=== PATIENT | male | born 1955 | race African-American/Black ===

== ENCOUNTER 2018-08-10 09:57 | Observation (INO) ==
[2018-08-10] MEDS ORDERED: ceFAZolin 2 GM Premix Inj 2 GM/50 ML PIGGYBACK IV.SIG ONE (11:27)
[2018-08-10] MEDS ORDERED: Metoprolol Tartrate 25 MG Tablet PO ONE (11:30)
[2018-08-10] MEDS ORDERED: Sodium Chlor 0.9% Inj 500 ML IV.CONT ONE (11:30)
[2018-08-10] MEDS ORDERED: Chlorhexidine Gluconate 2% 1 Pack (2 Cloths) TOPICAL ONE (11:30)
[2018-08-10] MEDS ORDERED: methylPREDNISolone acetate 40 MG/ML VIAL ONE (11:41)
[2018-08-10] MEDS ORDERED: Gelatin Size 100 Topical Foam ONE (11:41)
[2018-08-10] MEDS ORDERED: Bupivacaine/Epinephrine Inj 0.25% 50 ML Vial ONE (11:41)
[2018-08-10] MEDS ORDERED: Thrombin Topical Soln 5,000 UNIT Vial TOPICAL ONE (11:41)
[2018-08-10] MEDS ORDERED: ceFAZolin 2 GM IV; once IV.SIG SCH (11:45)
[2018-08-10] MEDS ORDERED: fentaNYL Citrate Inj 250 MCG/5 ML Ampul ONE (11:49)
[2018-08-10] MEDS ORDERED: Phenylephrine/NS 1000 MCG/10ML Syringe IV.PUSH ONE (12:02)
[2018-08-10] MEDS ORDERED: Morphine Inj 4 MG/ML Vial IV.PUSH PRN (15:12)
[2018-08-10] MEDS ORDERED: Bisacodyl 10 MG Supp RECTAL PRN (15:12)
[2018-08-10] MEDS ORDERED: Dextrose 50% in Water 50 ML Vial IV.PUSH PRN (15:16)
--- NOTE | 2018-08-10 15:23 | XR ---
EXAM DATE: 08/10/2018 12:00 AM EDT AGE/SEX: 63 years / Male INDICATIONS: Level localization for L3,L4 and L4,L5 laminectomy. CLINICAL DATA: This is the patient's initial encounter. Patient reports that signs and symptoms have been present for 1 day and indicates a pain score of Nonresponsive. MEDICAL/SURGICAL HISTORY: None. None. COMPARISON: [facility] [place]UMBAR SP[place], 12/18/2010. . FINDINGS: Single spot intraoperative crosstable lateral view of the lower lumbar spine demonstrates a localizat ion probe projecting posterior to the L4 vertebral body. CONCLUSION: L4 localization. Electronically signed by: Zhen Amezquita MD 08/10/2018 3:22 PM EDT
--- NOTE | 2018-08-10 15:31 | P.OP ---
Preoperative Diagnosis: Lumbar spinal stenosis Postoperative Diagnosis: Lumbar spinal stenosis Date of procedure: 08/10/18 Procedure: Right L3-4, L4-5 decompressive laminectomy, mesiofacetectomy, foraminotomy, microsurgical rsection of the disk Anesthesia: FARNAZ Surgeon: Kojo Jennings MD Machine Ceramic Coater: Renetta White Pathology: none sent Operation and Findings: INTRAOPERATIVE FINDINGS: INDICATIONS FOR THE SURGICAL PROCEDURE Mr Clarke is a 63 year-old male who presented with intractable mechanical back pain and clinical evidence of lower extremity right L4 and L5 radiculopathy. He was found to have significant lumbar spinal stenosis with significant mass effect on the neural structures which correlated with the clinical symptoms. The patient has failed maximum nonsurgical management including multiple modalities of conservative treatment as well as pain management interventions by an interventional pain specialist. A surgical decompression was indicated as a last resort. The [id number] details of the procedure, indications, alternatives, risks and potential complications were fully discussed with the patient. The patient fully understood. All the questions were answered. No guarantees were given. The patient voiced requesting the procedure and provided informed consents. The patient was offered the alternative of delaying the procedure and continuing with nonsurgical management. DETAILS OF THE SURGICAL PROCEDURE After the induction of general anesthesia, endotracheal intubation was performed. A Padilla catheter, bilateral JUAN PABLO hose and sequential compression devices were placed and kept throughout the procedure. The patient was positioned prone on a Mikie table over a Christ frame. All pressure points were carefully padded with eggcrate mattress. The eyes were tapped shut after ointment was applied by the anesthesiologist to prevent corneal abrasion. A Dora hugger was placed over the exposed lower body to maintain control of the core body temperature. The lower lumbar region was prepped and draped in the usual sterile fashion. A spinal needle was placed for localization and an x- ray performed with a C-arm. A skin incision was made in the midline over the spinous processes L3-L5 with a #10 blade. Small subcutaneous bleeders were controlled with a bipolar and the dissection was carried out through the lumbar fascia exposing the spinous processes. A subperiostial dissection was performed with a Bernstein elevator and a Bovie over the L3, l4, l5 spinous process lamina and facets over the right side. A microdiscectomy self-retaining retractor was placed on the incision and an x-ray was obtained with an instrument placed underneath the lamina of L4. At this point in the procedure the operating microscope was draped in the usual sterile fashion and brought to the field. The rest of the surgical procedure was performed using microsurgical dissection technique with exception of the closure. Once the level was confirmed, a decompressive laminectomy was performed at L3-4 , L4-5 on the right side using the TPS drill with an 4mm drill bit. A medial facetectomy was performed and the superior free border of the ligamentum flavum was dissected with a ligament dissector and removed with a thin footplate 2 mm Kerrison. The medial facetectomy was done and the right L4 and L5 nerve root were identified and followed towards its exit in the foramen. Epidural veins located laterally to the dural sac were coagulated with a bipolar and incised with microscissors. Gentle medial retraction of the dural sac allowed inspection of the disc space. The patient had severe facet arthropathy with hypertrhopy of the joint facets and ligamentum flavum resulting in mass effect over the dural sac and nerve roots. In addition, there were broad-based disc protusions, contributing to the stenosis. The annulus fibrosus of the disc was coagulated with the bipolar and incised with an 11 blade. The extruded disc was carefully dissected from the surrounding tissue and removed with pituitary forceps. Then, a microdiscectomy was carried out in the standard fashion using straight and up-biting pituitary forceps. A good decompression of the dural sac and nerve root was achieved. The exit of the nerve root was inspected for residual disc fragments and hemostasis was secured with the bipolar. The incision was irrigated with a large amount of saline solution. A Valsalva maneuver failed to show any cerebrospinal fluid leak or bleeding. The decompression was assessed again and found to be satisfactory. The incision was then closed in layers. The fascia was closed with 0 Vicryl sutures in an interrupted fashion. The superficial fascia was closed with 0 Vicryl sutures. The fascia was infiltrated with 0.5% Marcaine with epinephrine 1:100,000 dilution. The subcutaneous tissue was irrigated then closed with 0 Vicryl and 3 -0 Vicryl. The skin was closed with 4-0 running subcuticular Vicryl. A sterile dressing was applied. At the end of the procedure, the sponge, needle and instrument counts were all correct. Estimated blood loss was less than 80 cc. No blood transfusion was given. No intraoperative complications occurred. The patient received prophylactic antibiotics. The patient was then extubated and transferred to the recovery room in stable condition.
[2018-08-10] MEDS ORDERED: *morphine SULFATE 10 MG/ML PERIprocedure ONLY ONE ×2 (15:32→16:24)
[2018-08-10] MEDS ORDERED: HYDROmorphone PF Inj 2 MG/ML Vial ONE (18:21)
[2018-08-10] MEDS: Insulin NovoLOG Aspart Correctional Sugar Inj SQ SCH (18:22)
[2018-08-10] MEDS: Senna/Docusate Sodium 8.6/50 MG Tablet PO SCH (20:24)
[2018-08-10] MEDS ORDERED: dilTIAZem CD 240 MG Capsule PO SCH (21:00)
[2018-08-10] MEDS ORDERED: Lisinopril 20 MG Tablet PO SCH (21:00)
[2018-08-11] MEDS: Insulin NovoLOG Aspart Correctional Sugar Inj SQ SCH ×3 (00:03→12:52)
[2018-08-11] MEDS ORDERED: hydroCHLOROthiazide 25 MG Tablet PO SCH (09:00)
[2018-08-11] MEDS ORDERED: Potassium Chloride 10 MEQ ER Capsule PO SCH (09:00)
[2018-08-11] MEDS ORDERED: Pantoprazole Sodium 20 MG DR Tablet PO SCH (09:00)
[2018-08-11 12:21] VITALS: BP 131/66; PULSE 72; RESP 18; TEMP 97.4; O2SAT 97
[2018-08-11] MEDS: Senna/Docusate Sodium 8.6/50 MG Tablet PO SCH (12:25)
[2018-08-11] MEDS ORDERED: Influenza (Quadrivalent) Vaccine 0.5 ML Syringe IM ONE (14:45)
[2018-08-12] MEDS ORDERED: TESTOSTERONE TOPICAL SCH (09:00)
--- NOTE | 2018-08-17 12:13 | P.DS ---
<Jo-Ann Li - Last Filed: 08/17/18 11:42> Date of admission: 08/10/18 15:33 Primary care physician: Lul Ordonez Brief History from admission: Mr Clarke is a 63 year-old male who presented with intractable mechanical back pain and clinical evidence of lower extremity right L4 and L5 radiculopathy. He was found to have significant lumbar spinal stenosis with significant mass effect on the neural structures which correlated with the clinical symptoms. The patient has failed maximum nonsurgical management including multiple modalities of conservative treatment as well as pain management interventions by an interventional pain specialist. A surgical decompression was indicated as a last resort. DS: Summary Hospital Course: Mr. Clarke underwent a Right L3-4, L4-5 decompressive laminectomy, mesiofacetectomy, foraminotomy, microsurgical rsection of the disk for Lumbar spinal stenosis on 08/10/18. - Time Spent with Patient Total time spent providing and/or coordinating discharge services: Less than 30 minutes - Quality: VTE Deep Vein Thrombosis/Pulmonary Embolism Present on Admission: No Results - Impressions ITS Impressions Lumbar Spine X-Ray 08/10/18 00:00 Single spot intraoperative crosstable lateral view of the lower lumbar spine demonstrates a localization probe projecting posterior to the L4 vertebral body. CONCLUSION: L4 localization. <Kojo Jennings - Last Filed: 08/24/18 10:32> Date of admission: 08/10/18 15:33 Primary care physician: Lul Ordonez DS: Summary - Time Spent with Patient Total time spent providing and/or coordinating discharge services: Results - Impressions ITS Impressions Lumbar Spine X-Ray 08/10/18 00:00 Single spot intraoperative crosstable lateral view of the lower lumbar spine demonstrates a localization probe projecting posterior to the L4 vertebral body. CONCLUSION: L4 localization. Discharge Plan - Discharge Order Discharge Orders: Discharge Order (Routine); Ordered 08/11/18 Ordered By: Jo-Ann Li - Physicians Team Primary Care Provider: Lul Ordonez Attending Provider: Kojo Jennings - Rxs /Orders / Referrals /Forms Prescriptions: Continue atorvastatin 40 mg Tablet 20 mg PO DAILY diltiazem HCl 240 mg Capsule,Extended Release 24 Hr 240 mg PO HS hydrochlorothiazide 25 mg Tablet 25 mg PO DAILY insulin NPH and regular human [Novolin 70/30 U-100 Insulin] 100 unit/mL (70- 30) Suspension 38 unit SUBCUT BID lisinopril 40 mg Tablet 40 mg PO HS metformin 1,000 mg Tablet 1,000 mg PO BID omeprazole 20 mg Tablet,Delayed Release (Dr/Ec) 20 mg PO DAILY oxycodone-acetaminophen 5-325 mg Tablet 1 tab PO Q4-6H PRN (Reason: Pain, Moderate) potassium chloride 10 mEq Capsule, Extended Release 10 meq PO DAILY terazosin 2 mg Capsule 6 mg PO HS testosterone 1.62 % (20.25 mg/1.25 gram) Gel In Packet 1 packet TRANSDERMAL DAILY Ambulatory Orders / Order Sets / DME: Adjustable Commode 3-in-1 (1 each) (Routine) Location: Determined by Patient Ordered By: Jo-Ann Li Referrals: Lul Ordonez D.O. [Primary Care Provider] - See Instructions - Discharge Instructions Patient Printed Instructions: Laminectomy (DC), Fall Prevention (DC), Lumbar Corset (DC) - Post Discharge Care Plan Care Plan Goals: Your Health Problems: Goals to Promote Your Health: * To prevent worsening of your condition * To maintain your health at the optimal level Directions to Meet Your Goals: * Take your medications as prescribed * Follow your dietary instruction * Follow activity as directed * Keep your appointments as scheduled * Take your immunizations and boosters as scheduled * If your symptoms worsen call your PCP * If no PCP go to Urgent Care or Emergency Room Smoking is dangerous to your health. Avoid second hand smoke. You may reach the 24-hour crisis hotline for domestic abuse at .
== END 2018-08-11 15:05 | disposition home or self-care (01) ==
LOC: HSDC 09:57 → HSDI 09:57 → N06 19:00
PROVIDERS: ADMIT Neurological Surgery; ATTEND Neurological Surgery